=== PATIENT | male | born 1980 | race Caucasian/White ===

== ENCOUNTER 2016-11-12 02:51 | Inpatient (IN) | payer SELFPAY ==
[~2016-11-12] VITALS: Ht 175.3 cm; Wt 66.5 kg
--- NOTE | 2016-11-12 04:55 | DIAGNOSTIC IMAGING REPORT ---
PROCEDURE: XR HAND 3 OR 4 VIEWS - RIGHT INDICATION: CELLULITIS TECHNIQUE: Four views. COMPARISON: None. FINDINGS: There is moderate soft tissue swelling over the dorsum of the right hand. There is a true millimeter metal foreign body in the subcutaneous tissues of the distal right thumb. Osseous structures and joint spaces are normal. IMPRESSION: 1. Moderate soft tissue swelling. 2. There is a 2 mm metal foreign body in the soft tissues of the distal right thumb (acute versus old). 3. Otherwise negative right hand. 4. Findings discussed with Dr. Thomas Pascal.
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
--- NOTE | 2016-11-12 08:04 | ED ORDER SUMMARY ---
..... Patient: ALEJANDRINA HENDRIX OrderSheet [facility] VisitID: [id number] [place] [address] 36y, M Registration Date/Time: 11/12/2016 ORDER SHEET Weight: 70.3 kg (stated) Allergies: No Known Drug Allergy GENERAL ORDERS: Hand 3 or 4V Right Urgent (03:49 11/12/2016 Bernadette Rueda) (Ack 3:52 AMcQuoid ER Tech1) (4:03 Amrita) CBC w Diff Urgent (03:49 11/12/2016 Bernadette Rueda) (Ack 3:52 AMcQuoid ER Tech1) (4:09 JDeElena R.N.) CMP Urgent (03:49 11/12/2016 Bernadette Rueda) (Ack 3:52 AMcQuoid ER Tech1) (4:09 JDeElena R.N.) Blood Culture (No) (N/A) Urgent (05:06 11/12/2016 Bernadette Rueda) (Ack 5:16 AMcQuoid ER Tech1) (6:07 JDeElena R.N.) PCT (Procalcitonin) Urgent (05:06 11/12/2016 Bernadette Rueda) (Ack 5:16 AMcQuoid ER Tech1) (6:07 JDeElena R.N.) Lactate, Serum Urgent (05:06 11/12/2016 Bernadette Rueda) (Ack 5:16 AMcQuoid ER Tech1) (6:07 JDeElena R.N.) MEDICATION ORDERS: Qctsozs-Trqxto-Mpivo Pertussis IM 0.5 mL (NOW, per protocol) (03:50 11/12/2016 Bernadette Rueda) (Ack 4:03 JDeElena R.N.) (4:15 JDeElena R.N.) Nicotine Topical 21 mg (NOW) (06:32 11/12/2016 JDeElena R.N. verbal order read back to Bernadette Rueda) (Ack 6:32 JDeElena R.N.) (6:35 JDeElena R.N.) IV FLUIDS: IV Saline Lock (03:49 11/12/2016 Bernadette Rueda) (Ack 4:03 JDeElena R.N.) (4:09 JDeElena R.N.) Morphine IV 4 mg (HIGH ALERT MEDICATION, NOW) (03:50 11/12/2016 Bernadette Rueda) (Ack 4:03 JDeElena R.N.) (4:11 JDeElena R.N.) IV NS : initial bolus 1000 mL (1000 mL/hr), then none - for X1 (NOW) (05:06 11/12/2016 Bernadette Rueda) (Ack 5:07 JDeElena R.N.) (6:07 JDeElena R.N.) Vancomycin IV 1 gm/200mL (NOW) (05:06 11/12/2016 Bernadette Rueda) (Ack 5:07 JDeElena R.N.) (6:26 JDeElena R.N.) Ceftriaxone IV 1 gm/50mL (NOW) (05:07 11/12/2016 Bernadette Rueda) (Ack 5:07 JDeElena R.N.) (6:07 JDeElena R.N.) IV NS : initial bolus 1000 mL (1000 mL/hr), then none - for X1 (NOW) (07:52 11/12/2016 Bernadette Rueda) (Ack 7:57 MWinterer R.N.) (8:01 MWinterer R.N.) ORDER SHEET NOTES: [Electronically signed by Thomas Pascal Dr. (08:04 11/12/2016)] [Electronically signed by Shelia Vargas R.N. (09:35 11/12/2016)] [Electronically locked/signed by Shelia Vargas R.N. (09:35 11/12/2016)]
--- NOTE | 2016-11-12 08:04 | ED NURSING NOTES ---
Clinical Report - Nurses Merged With [facility] [address] [place] [address] 11/12/2016 2:51 Patient: ALEJANDRINA HENDRIX TRIAGE Triage time 03:12. Acuity: LEVEL 4. Chief Complaint: TENDER AREA and . Onset about 2 days ago, worst pain on middle R finger. States pus is coming out of the wound. Alert. No acute distress. SEPSIS SCREEN: Sepsis Screen: negative. Infection suspected/documented. --03:17 Sergio Maldonado R.N. 03:12 11/12/16. BP: 106/77 (regular adult cuff) taken on the left arm, via an automated monitor, while lying. HR: 93 (normal rate). RR: 16 (regular, unlabored and normal). O2 saturation: 100% on room air. Temp: 98 F (oral). Pain level now: 05/30. --03:17 Sergio Maldonado R.N. Weight: 70.3 kg stated. Height/Length: 69 inches Per Patient. BMI: 22.9. --03:13 Sergio Maldonado R.N. Medications None. --03:13 Sergio Maldonado R.N. Medication/allergy information source: the patient. --03:17 Sergio Maldonado R.N. Allergies No Known Drug Allergy. --03:13 Sergio Maldonado R.N. History Arrived by private vehicle. Historian: patient. Primary physician (None). Onset. (about 2 days ago). It is described as painful. He has had chills. Denies muscle aches. No sweating episodes. Treatment HOSPITAL SCIENTIST: (Epsom salt-not really any relief). SOCIAL HX: Current every day heavy tobacco smoker (cigarette)- less than 1 pack per day. No alcohol use or drug use. He has not traveled outside the [place] The patient was not exposed to MRSA. ABUSE ASSESSMENT: Abuse assessment: The patient was asked "Do you feel safe in your home?" and "Has anyone hurt you or threatened to hurt you?". No report of abuse. SELF HARM ASSESSMENT: A self harm assessment was performed. The patient answered "no" to the question "Do you have thoughts of harming or killing yourself?" and "Have you recently had thoughts about harming or killing others?". FALL RISK ASSESSMENT: Fall risk assessment completed. No fall risk identified. NUTRITIONAL RISK ASSESSMENT: The nutritional risk assessment revealed no deficiencies. FUNCTIONAL ASSESSMENT: Functional assessment: no impairments noted. LEARNING NEEDS ASSESSMENT: The learning needs assessment revealed no barriers. SKIN INTEGRITY ASSESSMENT: Skin integrity risk assessment completed. No skin integrity risk identified. --03:17 Sergio Maldonado R.N. PROBLEMS: Head Injury. Cervical Strain. Hypertension. Tetanus Status. --03:13 Sergio Maldonado R.N. ADDITIONAL SURGERIES: Tonsillectomy. --03:13 Sergio Maldonado R.N. Assessment GENERAL / NEURO / PSYCH: Alert. Oriented X 4. Appears in no acute distress. Marianna Coma Scale: 15- eyes open spontaneously (4); best verbal response- oriented x 4 (5); best motor response- obeys commands (6). Patient appears calm and cooperative. ( Knuckles on R hand red, swollen). RESPIRATORY: Respirations not labored. SKIN: Skin is warm and dry. --03:17 Sergio Maldonado R.N. Interventions ID band on patient. To treatment room. --03:17 Sergio Maldonado R.N. PHYSICAL ASSESSMENT Ambulatory to room. GENERAL / NEURO / PSYCH: Alert. Appears in pain. Oriented X 4. RESPIRATORY: No respiratory distress. Respirations not labored. CVS: Pulses: right radial 2+ and left radial 2+. Capillary refill less than 2 seconds. EXTREMITIES: ( Knuckles on R hand swollen and red. Abrasions noted. Alejandrina reports abrasion near ring finger is draining pus.). SKIN: Skin is warm and dry. --03:18 Sergio Maldonado R.N. NURSING PROGRESS NOTES The initial plan of care for this patient has been created This plan of care was discussed with the patient. Reassurance given to the patient. Two patient identifiers checked. Call light placed in reach. Side rails up x 1. Bed placed in lowest position. Brakes of bed on. Patient ready for evaluation- ED physician notified. --03:17 Sergio Maldonado R.N. 04:09 11/12/2016 Site #1 started via IV in the left hand with an 20g angiocath, with aseptic technique and good blood return; one attempt. Blood drawn: rainbow set. Labeled in the presence of the patient and sent to the lab. Saline lock flushed with 10 mL saline. --04:09 Sergio Maldonado R.N. 04:11 11/12/2016 Morphine IVP 4 mg given over 2 minute(s) via site #1. Allergies verified, confirmed 5 rights and sedative warning given to the patient. IV patency established. IV site checked: no pain, redness, or swelling. IV flushed thoroughly pre- and post-medication administration. IVP given by RN. --04:11 Sergio Maldonado R.N. 04:15 11/12/2016 HAVNLJO-PCUJHN-LAMIC PERTUSSIS IM 0.5 mL given. (Lot#: [id number], expiration date: 05/28/2018, Technical Associate: sanofi pasteur). Given in the right deltoid. Allergies verified and confirmed 5 rights. Vaccine information statement provided to the patient. --04:15 Sergio Maldonado R.N. 06:07 11/12/2016 Started bag #1 1000 mL IV Fluids IV NS (Saline); at 1000 mL/hr over 1 hour(s) via site #1. Allergies verified and confirmed 5 rights. IV patency established. IV site checked: no pain, redness, or swelling. IV flushed thoroughly pre- and post-medication administration. Completed per protocol. --06:07 Sergio Maldonado R.N. 06:07 11/12/2016 Started 1 gm of Ceftriaxone IVPB in bag #1 50 mL; at 100 mL/hr over 30 minute(s) via site #1; Allergies verified and confirmed 5 rights. IV patency established. IV site checked: no pain, redness, or swelling. IV flushed thoroughly pre- and post-medication administration. Completed per protocol. --06:07 Sergio Maldonado R.N. 05:45. Patient ID band checked for patient name and birthdate: patient confirmed. Blood samples drawn from the left antecubital space by lab ; labeled in presence of the patient and sent to lab: red and juarez top; blood culture (1st set). --06:08 Sergio Maldonado R.N. 06:08 11/12/16. BP: 116/66 (regular adult cuff) taken on the left arm, via an automated monitor, while lying. HR: 84 (normal rate). RR: 16 (regular, unlabored and normal). O2 saturation: 99% on room air. --06:09 Sergio Maldonado R.N. The patient is resting quietly. RESPIRATORY: No respiratory distress. --06:09 Sergio Maldonado R.N. 06:26 11/12/2016 Started 1 gm of Vancomycin IVPB in bag #1 200 mL; at 200 mL/hr over 1 hour(s) via site #1; Allergies verified and confirmed 5 rights. IV patency established. IV site checked: no pain, redness, or swelling. IV flushed thoroughly pre- and post-medication administration. Completed per protocol. --06:26 Sergio Maldonado R.N. 06:27 11/12/2016 IV Fluids IV NS Response: no adverse reaction. --06:27 Aviva French R.N. 06:27 11/12/2016 [id number] PERTUSSIS IM Response: no adverse reaction. --06:27 Aviva French R.N. 06:28 11/12/2016 Morphine IVP Response: no adverse reaction. --06:28 Aviva French R.N. 06:28 11/12/16. Reassessment after medication administered. He has had no adverse reaction. --06:28 Aviva French R.N. 06:35 11/12/2016 NICOTINE Topical Patch/Pad 21 mg. Applied to the right upper arm. Allergies verified and confirmed 5 rights. --06:35 Sergio Maldonado R.N. 07:12 11/12/16. BP: 113/72. HR: 79. O2 saturation: 98% on room air. --07:12 Shelia Vargas R.N. 07:10 11/12/2016 IV Fluids IV NS Discontinued: bag #1 infused. Total amount infused: 1000 mL. IV patency established. IV site checked: no pain, redness, or swelling. IV flushed thoroughly. --08:27 Shelia Vargas R.N. 07:12 11/12/16. The patient reports no complaints and he is calm and resting quietly. --07:13 Shelia Vargas R.N. Care transferred and report given (DELANEY Bass). --07:14 Sergio Maldonado R.N. 07:32 11/12/2016 Vancomycin IVPB Discontinued: bag #1 infused. Total amount infused: 200 mL. IV patency established. IV site checked: no pain, redness, or swelling. IV flushed thoroughly. --07:32 Shelia Vargas R.N. 08:01 11/12/2016 Started bag #2 1000 mL IV Fluids IV NS (Saline); at 1000 mL/hr over 1 hour(s) via site #1. Allergies verified and confirmed 5 rights. IV patency established. IV site checked: no pain, redness, or swelling. IV flushed thoroughly pre- and post-medication administration. --08:01 Shelia Vargas R.N. 08:59 11/12/16. ( H&P form given to pt to fill out.). --08:59 Abigail Sr 09:02 11/12/2016 Site #[address] upon admission; patent, no pain and no signs of infection or infiltration; flushes easily. --09:17 Shelia Vargas R.N. 09:02 11/12/2016 IV Fluids IV NS Discontinued: bag #2 infused. Total amount infused: 1000 mL. IV patency established. IV site checked: no pain, redness, or swelling. IV flushed thoroughly. --09:17 Shelia Vargas R.N. DISPOSITION / DISCHARGE Patient paged once with no response. --03:02 Sergio Maldonado R.N. Patient paged; (DELANEY Chicas went to waiting room to get Alejandrina. Per front end developer, Alejandrina is outside smoking.). --03:03 DeElena, Sergio, R.N. Patient's personal items include: shirt, pants, undergarments, coat, socks, shoes and hat; items were placed in belongings bag, given to the patient and transported with the patient. Collection of belongings was witnessed by 1 nurse. He did not have glasses, contacts or dentures. He did not have a hearing aid, wallet or cell phone or jewelry. --08:18 Moon Hough R.N. 08:18 11/12/16. BP: 116/74. HR: 87. RR: 15. O2 saturation: 99%. Temp: 98.1 F. Pain level now 02/27. --08:19 Moon Hough R.N. Condition at departure: stable. --08:20 Moon Hough R.N. ( pt resting quietly, equal rise/fall of chest, reports pain of 7, pts belongings bagged and pt readied for admit to hospital.). --08:20 Moon Hough R.N. 09:10 late entry -. Admitted to Acute Care. Transported via stretcher by [employer] (T/A). Report was given to a nurse via a phone call. Report included patient's care, treatment, medications, reviewed medication reconcilliation, and condition (including any recent changes or anticipated changes). All questions were answered. Report was acknowledged and care was transferred. (DELANEY Valle). Bed obtained and ready (211). --09:34 Shelia Vargas R.N. Locked/Released at 11/12/2016 9:35 by Shelia Vargas R.N.
--- NOTE | 2016-11-12 08:04 | ED ORDER SUMMARY ---
..... Patient: ALEJANDRINA HENDRIX OrderSheet [facility] VisitID: [id number] [place] [address] 36y, M Registration Date/Time: 11/12/2016 ORDER SHEET Weight: 70.3 kg (stated) Allergies: No Known Drug Allergy GENERAL ORDERS: Hand 3 or 4V Right Urgent (03:49 11/12/2016 Bernadette Rueda) (Ack 3:52 AMcQuoid ER Tech1) (4:03 Amrita) CBC w Diff Urgent (03:49 11/12/2016 Bernadette Rueda) (Ack 3:52 AMcQuoid ER Tech1) (4:09 JDeElena R.N.) CMP Urgent (03:49 11/12/2016 Bernadette Rueda) (Ack 3:52 AMcQuoid ER Tech1) (4:09 JDeElena R.N.) Blood Culture (No) (N/A) Urgent (05:06 11/12/2016 Bernadette Rueda) (Ack 5:16 AMcQuoid ER Tech1) (6:07 JDeElena R.N.) PCT (Procalcitonin) Urgent (05:06 11/12/2016 Bernadette Rueda) (Ack 5:16 AMcQuoid ER Tech1) (6:07 JDeElena R.N.) Lactate, Serum Urgent (05:06 11/12/2016 Bernadette Rueda) (Ack 5:16 AMcQuoid ER Tech1) (6:07 JDeElena R.N.) MEDICATION ORDERS: Hzztuyf-Raczao-Ngavz Pertussis IM 0.5 mL (NOW, per protocol) (03:50 11/12/2016 Bernadette Rueda) (Ack 4:03 JDeElena R.N.) (4:15 JDeElena R.N.) Nicotine Topical 21 mg (NOW) (06:32 11/12/2016 JDeElena R.N. verbal order read back to Bernadette Rueda) (Ack 6:32 JDeElena R.N.) (6:35 JDeElena R.N.) IV FLUIDS: IV Saline Lock (03:49 11/12/2016 Bernadette Rueda) (Ack 4:03 JDeElena R.N.) (4:09 JDeElena R.N.) Morphine IV 4 mg (HIGH ALERT MEDICATION, NOW) (03:50 11/12/2016 Bernadette Rueda) (Ack 4:03 JDeElena R.N.) (4:11 JDeElena R.N.) IV NS : initial bolus 1000 mL (1000 mL/hr), then none - for X1 (NOW) (05:06 11/12/2016 Bernadette Rueda) (Ack 5:07 JDeElena R.N.) (6:07 JDeElena R.N.) Vancomycin IV 1 gm/200mL (NOW) (05:06 11/12/2016 Bernadette Rueda) (Ack 5:07 JDeElena R.N.) (6:26 JDeElena R.N.) Ceftriaxone IV 1 gm/50mL (NOW) (05:07 11/12/2016 Bernadette Rueda) (Ack 5:07 JDeElena R.N.) (6:07 JDeElena R.N.) IV NS : initial bolus 1000 mL (1000 mL/hr), then none - for X1 (NOW) (07:52 11/12/2016 Bernadette Rueda) (Ack 7:57 MWinterer R.N.) (8:01 MWinterer R.N.) ORDER SHEET NOTES: [Electronically signed by Thomas Pascal Dr. (08:04 11/12/2016)] [Electronically signed by Shelia Vargas R.N. (09:35 11/12/2016)] [Electronically locked/signed by Shelia Vargas R.N. (09:35 11/12/2016)]
--- NOTE | 2016-11-12 08:04 | ED NURSING NOTES ---
Clinical Report - Nurses Formerly [facility] [address] [place] [address] 11/12/2016 2:51 Patient: ALEJANDRINA HENDRIX TRIAGE Triage time 03:12. Acuity: LEVEL 4. Chief Complaint: TENDER AREA and . Onset about 2 days ago, worst pain on middle R finger. States pus is coming out of the wound. Alert. No acute distress. SEPSIS SCREEN: Sepsis Screen: negative. Infection suspected/documented. --03:17 Sergio Maldonado R.N. 03:12 11/12/16. BP: 106/77 (regular adult cuff) taken on the left arm, via an automated monitor, while lying. HR: 93 (normal rate). RR: 16 (regular, unlabored and normal). O2 saturation: 100% on room air. Temp: 98 F (oral). Pain level now: 05/30. --03:17 Sergio Maldonado R.N. Weight: 70.3 kg stated. Height/Length: 69 inches Per Patient. BMI: 22.9. --03:13 Sergio Maldonado R.N. Medications None. --03:13 Sergio Maldonado R.N. Medication/allergy information source: the patient. --03:17 Sergio Maldonado R.N. Allergies No Known Drug Allergy. --03:13 Sergio Maldonado R.N. History Arrived by private vehicle. Historian: patient. Primary physician (None). Onset. (about 2 days ago). It is described as painful. He has had chills. Denies muscle aches. No sweating episodes. 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 SOCIAL HX: Current every day heavy tobacco smoker (cigarette)- less than 1 pack per day. No alcohol use or drug use. He has not traveled outside the [place] The patient was not exposed to MRSA. ABUSE ASSESSMENT: Abuse assessment: The patient was asked "Do you feel safe in your home?" and "Has anyone hurt you or threatened to hurt you?". No report of abuse. SELF HARM ASSESSMENT: A self harm assessment was performed. The patient answered "no" to the question "Do you have thoughts of harming or killing yourself?" and "Have you recently had thoughts about harming or killing others?". FALL RISK ASSESSMENT: Fall risk assessment completed. No fall risk identified. NUTRITIONAL RISK ASSESSMENT: The nutritional risk assessment revealed no deficiencies. FUNCTIONAL ASSESSMENT: Functional assessment: no impairments noted. LEARNING NEEDS ASSESSMENT: The learning needs assessment revealed no barriers. SKIN INTEGRITY ASSESSMENT: Skin integrity risk assessment completed. No skin integrity risk identified. --03:17 Sergio Maldonado R.N. PROBLEMS: Head Injury. Cervical Strain. Hypertension. Tetanus Status. --03:13 Sergio Maldonado R.N. ADDITIONAL SURGERIES: Tonsillectomy. --03:13 Sergio Maldonado R.N. Assessment GENERAL / NEURO / PSYCH: Alert. Oriented X 4. Appears in no acute distress. Meadow Coma Scale: 15- eyes open spontaneously (4); best verbal response- oriented x 4 (5); best motor response- obeys commands (6). Patient appears calm and cooperative. ( Knuckles on R hand red, swollen). RESPIRATORY: Respirations not labored. SKIN: Skin is warm and dry. --03:17 Sergio Maldonado R.N. Interventions ID band on patient. To treatment room. --03:17 Sergio Maldonado R.N. PHYSICAL ASSESSMENT Ambulatory to room. GENERAL / NEURO / PSYCH: Alert. Appears in pain. Oriented X 4. RESPIRATORY: No respiratory distress. Respirations not labored. CVS: Pulses: right radial 2+ and left radial 2+. Capillary refill less than 2 seconds. EXTREMITIES: ( Knuckles on R hand swollen and red. Abrasions noted. Alejandrina reports abrasion near ring finger is draining pus.). SKIN: Skin is warm and dry. --03:18 Sergio Maldonado R.N. NURSING PROGRESS NOTES The initial plan of care for this patient has been created This plan of care was discussed with the patient. Reassurance given to the patient. Two patient identifiers checked. Call light placed in reach. Side rails up x 1. Bed placed in lowest position. Brakes of bed on. Patient ready for evaluation- ED physician notified. --03:17 Sergio Maldonado R.N. 04:09 11/12/2016 Site #1 started via IV in the left hand with an 20g angiocath, with aseptic technique and good blood return; one attempt. Blood drawn: rainbow set. Labeled in the presence of the patient and sent to the lab. Saline lock flushed with 10 mL saline. --04:09 Sergio Maldonado R.N. 04:11 11/12/2016 Morphine IVP 4 mg given over 2 minute(s) via site #1. Allergies verified, confirmed 5 rights and sedative warning given to the patient. IV patency established. IV site checked: no pain, redness, or swelling. IV flushed thoroughly pre- and post-medication administration. IVP given by RN. --04:11 Sergio Maldonado R.N. 04:15 11/12/2016 UGJUUOR-HWGEGQ-CMQME PERTUSSIS IM 0.5 mL given. (Lot#: [id number], expiration date: 05/28/2018, Automation Qtp Tester: sanofi pasteur). Given in the right deltoid. Allergies verified and confirmed 5 rights. Vaccine information statement provided to the patient. --04:15 Sergio Maldonado R.N. 06:07 11/12/2016 Started bag #1 1000 mL IV Fluids IV NS (Saline); at 1000 mL/hr over 1 hour(s) via site #1. Allergies verified and confirmed 5 rights. IV patency established. IV site checked: no pain, redness, or swelling. IV flushed thoroughly pre- and post-medication administration. Completed per protocol. --06:07 Sergio Maldonado R.N. 06:07 11/12/2016 Started 1 gm of Ceftriaxone IVPB in bag #1 50 mL; at 100 mL/hr over 30 minute(s) via site #1; Allergies verified and confirmed 5 rights. IV patency established. IV site checked: no pain, redness, or swelling. IV flushed thoroughly pre- and post-medication administration. Completed per protocol. --06:07 Sergio Maldonado R.N. 05:45. Patient ID band checked for patient name and birthdate: patient confirmed. Blood samples drawn from the left antecubital space by lab ; labeled in presence of the patient and sent to lab: red and juarez top; blood culture (1st set). --06:08 Sergio Maldonado R.N. 06:08 11/12/16. BP: 116/66 (regular adult cuff) taken on the left arm, via an automated monitor, while lying. HR: 84 (normal rate). RR: 16 (regular, unlabored and normal). O2 saturation: 99% on room air. --06:09 Sergio Maldonado R.N. The patient is resting quietly. RESPIRATORY: No respiratory distress. --06:09 Sergio Maldonado R.N. 06:26 11/12/2016 Started 1 gm of Vancomycin IVPB in bag #1 200 mL; at 200 mL/hr over 1 hour(s) via site #1; Allergies verified and confirmed 5 rights. IV patency established. IV site checked: no pain, redness, or swelling. IV flushed thoroughly pre- and post-medication administration. Completed per protocol. --06:26 Sergio Maldonado R.N. 06:27 11/12/2016 IV Fluids IV NS Response: no adverse reaction. --06:27 Aviva French R.N. 06:27 11/12/2016 JVPNORC-EMSOZY-YNJWI PERTUSSIS IM Response: no adverse reaction. --06:27 Aviva French R.N. 06:28 11/12/2016 Morphine IVP Response: no adverse reaction. --06:28 Aviva French R.N. 06:28 11/12/16. Reassessment after medication administered. He has had no adverse reaction. --06:28 Aviva French R.N. 06:35 11/12/2016 NICOTINE Topical Patch/Pad 21 mg. Applied to the right upper arm. Allergies verified and confirmed 5 rights. --06:35 Sergio Maldonado R.N. 07:12 11/12/16. BP: 113/72. HR: 79. O2 saturation: 98% on room air. --07:12 Shelia Vargas R.N. 07:10 11/12/2016 IV Fluids IV NS Discontinued: bag #1 infused. Total amount infused: 1000 mL. IV patency established. IV site checked: no pain, redness, or swelling. IV flushed thoroughly. --08:27 Shelia Vargas R.N. 07:12 11/12/16. The patient reports no complaints and he is calm and resting quietly. --07:13 Shelia Vargas R.N. Care transferred and report given (DELANEY Bass). --07:14 Sergio Maldonado R.N. 07:32 11/12/2016 Vancomycin IVPB Discontinued: bag #1 infused. Total amount infused: 200 mL. IV patency established. IV site checked: no pain, redness, or swelling. IV flushed thoroughly. --07:32 Shelia Vargas R.N. 08:01 11/12/2016 Started bag #2 1000 mL IV Fluids IV NS (Saline); at 1000 mL/hr over 1 hour(s) via site #1. Allergies verified and confirmed 5 rights. IV patency established. IV site checked: no pain, redness, or swelling. IV flushed thoroughly pre- and post-medication administration. --08:01 Shelia Vargas R.N. 08:59 11/12/16. ( H&P form given to pt to fill out.). --08:59 Abigail Sr 09:02 11/12/2016 Site #[address] upon admission; patent, no pain and no signs of infection or infiltration; flushes easily. --09:17 Shelia Vargas R.N. 09:02 11/12/2016 IV Fluids IV NS Discontinued: bag #2 infused. Total amount infused: 1000 mL. IV patency established. IV site checked: no pain, redness, or swelling. IV flushed thoroughly. --09:17 Shelia Vargas R.N. DISPOSITION / DISCHARGE Patient paged once with no response. --03:02 Sergio Maldonado R.N. Patient paged; (DELANEY Chicas went to waiting room to get Alejandrina. Per front end mechanic, Alejandrina is outside smoking.). --03:03 DeElena, Sergio, R.N. Patient's personal items include: shirt, pants, undergarments, coat, socks, shoes and hat; items were placed in belongings bag, given to the patient and transported with the patient. Collection of belongings was witnessed by 1 nurse. He did not have glasses, contacts or dentures. He did not have a hearing aid, wallet or cell phone or jewelry. --08:18 Moon Hough R.N. 08:18 11/12/16. BP: 116/74. HR: 87. RR: 15. O2 saturation: 99%. Temp: 98.1 F. Pain level now 02/27. --08:19 Mono Hough R.N. Condition at departure: stable. --08:20 Moon Hough R.N. ( pt resting quietly, equal rise/fall of chest, reports pain of 7, pts belongings bagged and pt readied for admit to hospital.). --08:20 Moon Hough R.N. 09:10 late entry -. Admitted to Acute Care. Transported via stretcher by [facility]. Report was given to a nurse via a phone call. Report included patient's care, treatment, medications, reviewed medication reconcilliation, and condition (including any recent changes or anticipated changes). All questions were answered. Report was acknowledged and care was transferred. (DELANEY Valle). Bed obtained and ready (211). --09:34 Shelia Vargas R.N. Locked/Released at 11/12/2016 9:35 by Shelia Vargas R.N.
--- NOTE | 2016-11-12 08:33 | Progress Note ---
Subjective General Admission History and Physical Examination Patient Name: Jose Carlos Patricia Admission Date: November 12, 2016 Primary Care Provider: None Attending Physician: Billy Eli M.D. Admitting Physician: Billy Eli M.D. Code Status: Full Code Room: 211 SUBJECTIVE Historian: Patient Reliability: Good Chief Complaint: , Painful, swollen right hand History of Present Illness: The patient is a 36-year-old white male with a significant past medical history of hypertension, nicotine dependence-smoking who presented to [facility] emergency department on the day of admission with complaints of swelling, redness, and pain of the right hand. [facility] ER evaluation was consistent with cellulitis of the right hand. Secondary to the above the patient was admitted by Billy Eli M.D. with consultation by Dr. Suárez (orthopedics) for further evaluation and treatment. PAST MEDICAL HISTORY Illnesses: 1. Nicotine dependence-smoking 2. Hypertension 3. Nephrolithiasis 4. Peptic ulcer disease 5. Carpal tunnel syndrome Allergies: 1. No Known Drug Allergies Medications: 1. Aleve 220 mg by mouth twice a day when necessary pain Surgery: 1. Tonsillectomy 2. Bilateral myringotomy tubes Injuries: 1. No significant Hospitalizations: 1. For above surgery FAMILY HISTORY Parents: 1. Father, Popeye, living, 60, diverticulitis, coronary artery disease, 2. Mother, Natacha, , 51, call abuse Siblings: 1. Male, Abbe, living, 35, healthy Children: 1. None Other significant family history: None SOCIAL HISTORY 1. Marital Status: 2. Confucianism: None 3. 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 Occupational health exposures: None HABITS 1. Tobacco: Cigarettes 21 pack years, continues to smoke one half pack per day 2. Drugs: None 3. Alcohol: None 4. Caffeine: One cup coffee, 1 energy drink per day HEALTH SUPERVISION Item/Test 1. No recent IMMUNIZATIONS: 1. Pneumococcal: No previous 2. Influenza: No previous 3. Tetanus: 2017 ADVANCED DIRECTIVES: 1. Living well: No 2. POLST: No 3. Code Status: FULL CODE 4. 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 Donor card: No REVIEW OF SYSTEMS Remarkable for those things stated in the history of present illness and past medical history. Seventeen point review of system completed with the following notable findings: General: Fever, chills Skin: Dryness Genitourinary: Nephrolithiasis Gastrointestinal: Peptic ulcer disease Musculoskeletal: History of carpal tunnel syndrome Physical Exam Vital Signs / I&Os Blood pressure: 113/72 Pulse: 79 Respirations: 16 Temperature: 98F orally Pulse oximetry: 100% room air General Appearance Alert, Oriented X3, Cooperative, No acute distress HEENT Atraumatic, PERRLA, EOMI, Moist mucous membranes Lungs Clear to auscultation, Normal air movement Neck Supple, No JVD Cardiovascular Regular rate and rhythm, Normal S1 and S2, No murmurs, gallops, rubs Abdomen Normal bowel sounds, Soft, No tenderness Extremities No cyanosis, No clubbing, Edema of the dorsum right hand/third finger with associated erythema and tenderness palpation Neurological Cranial nerves intact, No lateralizing signs Psych/Mental Status Mental status normal, Mood normal LAB Results Laboratory Tests 11/12 11/12 11/12 0540 0410 0410 Chemistry Plasma Sodium (136 - 145 mmol/L) 140 Plasma Potassium (3.5 - 5.1 mmol/L) 3.7 Plasma Chloride (98 - 107 mmol/L) 104 CO2 (Enzymatic) (21 - 32 mmol/L) 28 BUN (7 - 18 mg/dL) 14 Creatinine (0.6 - 1.3 mg/dL) 0.8 Est GFR ( Amer) (mL/min) >60 Est GFR (Non-Af Amer) (mL/min) >60 Glucose (70 - 110 mg/dL) 108 Lactic Acid (0.4 - 2.0 mmol/L) 1.3 Plasma Calcium (8.5 - 10.1 mg/dL) 8.8 Total Bilirubin (0.0 - 1.0 mg/dL) 0.4 AST (15 - 37 U/L) 14 ALT (12 - 78 U/L) 26 Alkaline Phosphatase (46 - 116 U/L) 80 Total Protein (6.4 - 8.2 g/dL) 6.9 Albumin (3.3 - 5.0 g/dL) 3.2 Procalcitonin (0 - 0.5 ng/mL) <0.5 Hematology WBC (4.5 - 11.5 K/uL) 15.5 RBC (4.50 - 5.90 M/uL) 4.44 Hgb (13.5 - 17.5 gm/dL) 13.9 Hct (41.0 - 53.0 %) 41.5 MCV (80 - 100 fL) 93 MCH (26 - 34 pg) 31 RDW (11.6 - 14.8 %) 13.1 Neut % (Auto) (50 - 75 %) 71.5 Lymph % (Auto) (25 - 40 %) 16.0 [place] % (Auto) (3 - 14 %) 10.9 Eos % (Auto) (0 - 4 %) 1.3 Baso % (Auto) (0 - 2 %) 0.3 Plt Count, EDTA (150 - 400 K/uL) 299 PUBS MCHC (31 - 37 g/dL) 33 Microbiology Date/Time Procedure - Status Source Growth 11/13 539 Blood Culture - RECD BLOOD 11/13 539 Blood Culture - RECD BLOOD Imaging X-Ray Right Hand IMPRESSION: 1. Moderate soft tissue swelling. 2. There is a 2 mm metal foreign body in the soft tissues of the distal right thumb (acute versus old). 3. Otherwise negative right hand. 4. Findings discussed with Dr. Thomas Pascal. Dictated by: LUCRETIA DYSON MD D: DONIS;11/12/16 0455 Assessment and Plan Problem List 1. Cellulitis of right hand Plan -Patient presents with cellulitis right hand/third finger -Vancomycin per pharmacy protocol -No clear abscess at this time -Orthopedic consultation 2. Nicotine dependence Status Chronic Onset Date Unknown Plan -Patient with history of nicotine dependence-smoking -NicoDerm patch as needed -Smoking cessation education -Encourage smoking abstinence post discharge Current status: Fair, unstable Anticipated discharge date: Anticipated discharge in 2-3 days Anticipated discharge placement: Home Patient care time: Time spent in chart review, patient interview, physical exam, CPOE, and care documentation: 70 minutes Visit to patient today: 2 Complexity of care: Moderate E&M Codes Admission: Inpt-Moderate/16553
[2016-11-12 09:26] VITALS: BP 107/74
--- NOTE | 2016-11-12 09:36 | ED MED RECONCILIATION SUMMARY ---
Patient: ALEJANDRINA HENDRIX Medication Reconciliation Report [facility] VisitID: [id number] [place] [address] 36y, M Registration Date/Time: 11/12/2016 Weight: 70.3 kg Height/Length: 69 in. BMI: 22.9 ALLERGIES: No Known Drug Allergy The patient's Home Medications are listed below: NONE. The source(s) of the original Home Medication information: patient The following Medications were given to the patient in the Emergency Department: Morphine [IVP] IVP 4 mg, administered: 11/12/2016 4:11:00 AM HCUYKSL-LEPBIX-ECPJV PERTUSSIS [IM] IM 0.5 mL, administered: 11/12/2016 4:15:00 AM IV NS IV Fluids bolus 0, then 1000 mL/hr, administered: 11/12/2016 6:07:00 AM Ceftriaxone [IVPB] IVPB bolus 0, then 1 gm 100 mL/hr, administered: 11/12/2016 6:07:00 AM Vancomycin [IVPB] IVPB bolus 0, then 1 gm 200 mL/hr, administered: 11/12/2016 6:26:00 AM NICOTINE [TOPICAL] Topical 21 mg, administered: 11/12/2016 6:35:00 AM IV NS IV Fluids bolus 0, then 1000 mL/hr, administered: 11/12/2016 8:01:00 AM The following Medications were prescribed to the patient: None.
--- NOTE | 2016-11-12 09:36 | ED MED RECONCILIATION SUMMARY ---
Patient: ALEJANDRINA HENDRIX Medication Reconciliation Report [facility] VisitID: [id number] [place] [address] 36y, M Registration Date/Time: 11/12/2016 Weight: 70.3 kg Height/Length: 69 in. BMI: 22.9 ALLERGIES: No Known Drug Allergy The patient's Home Medications are listed below: NONE. The source(s) of the original Home Medication information: patient The following Medications were given to the patient in the Emergency Department: Morphine [IVP] IVP 4 mg, administered: 11/12/2016 4:11:00 AM GRVOATW-ZAKQDH-XMCUB PERTUSSIS [IM] IM 0.5 mL, administered: 11/12/2016 4:15:00 AM IV NS IV Fluids bolus 0, then 1000 mL/hr, administered: 11/12/2016 6:07:00 AM Ceftriaxone [IVPB] IVPB bolus 0, then 1 gm 100 mL/hr, administered: 11/12/2016 6:07:00 AM Vancomycin [IVPB] IVPB bolus 0, then 1 gm 200 mL/hr, administered: 11/12/2016 6:26:00 AM NICOTINE [TOPICAL] Topical 21 mg, administered: 11/12/2016 6:35:00 AM IV NS IV Fluids bolus 0, then 1000 mL/hr, administered: 11/12/2016 8:01:00 AM The following Medications were prescribed to the patient: None.
--- NOTE | 2016-11-12 09:36 | ED DISCHARGE INSTRUCTIONS ---
Patient: ALEJANDRINA HENDRIX General Instructions [facility] VisitID: [id number] [address] [place] [address] 36y, M Registration Date/Time: 11/12/2016 sepsis acute Cellulitis right hand, acute lymphangitis, acute right hand and forearm. (Electronically signed by Thomas Pascal Dr. 11/12/2016 8:04)
--- NOTE | 2016-11-12 09:36 | ED MAR SUMMARY ---
..... Medication Administration Record [facility] [address] [place] [address] Patient: ALEJANDRINA HENDRIX Visit ID: [id number] 36y, M Weight: 70.3 kg Height/Length: 69 in BMI: 22.9 ALLERGIES: No Known Drug Allergy Given 04:11 11/12/2016 Sergio Maldonado R.N. Medication Administered: MORPHINE [IVP], Dose: 4 mg IVP over 2 minute(s), Site: #1 left hand. Medication Ordered: Morphine IV 4 mg (HIGH ALERT MEDICATION, NOW). Given 04:15 11/12/2016 Sergio Maldonado R.N. Medication Administered: NDBNOUL-RKCNAD-XUFFR PERTUSSIS [IM], Dose: 0.5 mL IM. Medication Ordered: Cstjxep-Yyolrx-Jazge Pertussis IM 0.5 mL (NOW, per protocol). Start 06:07 11/12/2016 Sergio Maldonado R.N., Stop 07:10 11/12/2016 Shelia Vargas R.N. Medication Administered: IV NS (SALINE), Dose: IV Fluids over 1 hour(s), Rate: 1000 mL/hr, Dispensed: 1000 mL bag, Site: #1 left hand. Medication Ordered: IV NS : initial bolus 1000 mL (1000 mL/hr), then none - for X1 (NOW). Start 06:07 11/12/2016 Sergio Maldonado R.N. Medication Administered: CEFTRIAXONE [IVPB], Dose: 1 gm IVPB over 30 minute(s), Rate: 100 mL/hr, Dispensed: 50 mL bag, Site: #1 left hand. Medication Ordered: Ceftriaxone IV 1 gm/50mL (NOW). Start 06:26 11/12/2016 Sergio Maldonado R.N., Stop 07:32 11/12/2016 Shelia Vargas R.N. Medication Administered: VANCOMYCIN [IVPB], Dose: 1 gm IVPB over 1 hour(s), Rate: 200 mL/hr, Dispensed: 200 mL bag, Site: #1 left hand. Medication Ordered: Vancomycin IV 1 gm/200mL (NOW). Given 06:35 11/12/2016 Sergio Maldonado R.N. Medication Administered: NICOTINE [TOPICAL], Dose: 21 mg Patch/Pad Topical. Medication Ordered: Nicotine Topical 21 mg (NOW). Start 08:01 11/12/2016 Shelia Vargas R.N., Stop 09:02 11/12/2016 Shelia Vargas R.N. Medication Administered: IV NS (SALINE), Dose: IV Fluids over 1 hour(s), Rate: 1000 mL/hr, Dispensed: 1000 mL bag, Site: #1 left hand. Medication Ordered: IV NS : initial bolus 1000 mL (1000 mL/hr), then none - for X1 (NOW).
--- NOTE | 2016-11-12 09:36 | ED MAR SUMMARY ---
..... Medication Administration Record [facility] [address] [place] [address] Patient: ALEJANDRINA HENDRIX Visit ID: [id number] 36y, M Weight: 70.3 kg Height/Length: 69 in BMI: 22.9 ALLERGIES: No Known Drug Allergy Given 04:11 11/12/2016 Sergio Maldonado R.N. Medication Administered: MORPHINE [IVP], Dose: 4 mg IVP over 2 minute(s), Site: #1 left hand. Medication Ordered: Morphine IV 4 mg (HIGH ALERT MEDICATION, NOW). Given 04:15 11/12/2016 Sergio Maldonado R.N. Medication Administered: [id number]-[id number]-HNDZX PERTUSSIS [IM], Dose: 0.5 mL IM. Medication Ordered: Httymju-Gwbmka-Urvrb Pertussis IM 0.5 mL (NOW, per protocol). Start 06:07 11/12/2016 Sergio Maldonado R.N., Stop 07:10 11/12/2016 Shelia Vargas R.N. Medication Administered: IV NS (SALINE), Dose: IV Fluids over 1 hour(s), Rate: 1000 mL/hr, Dispensed: 1000 mL bag, Site: #1 left hand. Medication Ordered: IV NS : initial bolus 1000 mL (1000 mL/hr), then none - for X1 (NOW). Start 06:07 11/12/2016 Sergio Maldonado R.N. Medication Administered: CEFTRIAXONE [IVPB], Dose: 1 gm IVPB over 30 minute(s), Rate: 100 mL/hr, Dispensed: 50 mL bag, Site: #1 left hand. Medication Ordered: Ceftriaxone IV 1 gm/50mL (NOW). Start 06:26 11/12/2016 Sergio Maldonado R.N., Stop 07:32 11/12/2016 Shelia Vargas R.N. Medication Administered: VANCOMYCIN [IVPB], Dose: 1 gm IVPB over 1 hour(s), Rate: 200 mL/hr, Dispensed: 200 mL bag, Site: #1 left hand. Medication Ordered: Vancomycin IV 1 gm/200mL (NOW). Given 06:35 11/12/2016 Sergio Maldonado R.N. Medication Administered: NICOTINE [TOPICAL], Dose: 21 mg Patch/Pad Topical. Medication Ordered: Nicotine Topical 21 mg (NOW). Start 08:01 11/12/2016 Shelia Vargas R.N., Stop 09:02 11/12/2016 Shelia Vargas R.N. Medication Administered: IV NS (SALINE), Dose: IV Fluids over 1 hour(s), Rate: 1000 mL/hr, Dispensed: 1000 mL bag, Site: #1 left hand. Medication Ordered: IV NS : initial bolus 1000 mL (1000 mL/hr), then none - for X1 (NOW).
--- NOTE | 2016-11-12 09:36 | ED DISCHARGE INSTRUCTIONS ---
Patient: ALEJANDRINA HENDRIX General Instructions [facility] VisitID: [id number] [address] [place] [address] 36y, M Registration Date/Time: 11/12/2016 sepsis acute Cellulitis right hand, acute lymphangitis, acute right hand and forearm. (Electronically signed by Thomas Pascal Dr. 11/12/2016 8:04)
--- NOTE | 2016-11-12 10:00 | NUR ---
PATIENT ARRIVED TO FLOOR FROM ED AT 0920. PATIENT AMBULATED FROM STRETCHER TO BED WITH SBA. PATIENT TIRED DUE TO ARRIVING AT ED AT 0300. PHOTOS TAKEN OF BILATERAL HANDS. L MIDDLE KNUCKLE SLIGHTLY OPENED WITH SCANT SEROUS DRAINAGE. REDNESS AROUND OPEN AREA. R HAND WITH SWELLING AND REDNESS. MARKED WITH PEN. STATES PAIN 8/10. SEE ADMISSION DATA FOR FURTHER DETAILS.
--- NOTE | 2016-11-12 10:34 | NUR ---
Pt admits with cellulitis, pharmacy to dose vancomycin. Ht: 69in Wt: 70.3kg Scr: 0.8 Pt received 1gm vanco in ED at 0635 with ceftriaxone 1gm. Plan: Bolus with 1gm now for total bolus of 2gm, then begin 1500mg q8h with goal trough 10-20. Follow up with trough on 11/13.
[2016-11-12 14:13] VITALS: BP 110/76
[2016-11-12 18:15] VITALS: BP 105/67
--- NOTE | 2016-11-12 19:04 | NUR ---
PT IS A&OX3, BUT DROWSY MOST OF SHIFT. LS CTA, BT ACTIVE AND HR IS REG. RIGHT HAND IS RED AND HAS 2+ EDEMA THAT IS OUTLINED BY MARKER. LEFT HAND IS SLIGHTLY RED W/ A BAND-AID ON MIDDLE KNUCKLE. ANSWERS TO QUESTIONS APPOPRIATLEY BUT DROWSY. NO C/O NAUSEA. RESTING W. CALL LIGHT IN REACH.
[2016-11-12 21:34] VITALS: BP 126/75
[2016-11-12 22:20] VITALS: BP 138/74
--- NOTE | 2016-11-13 00:23 | NUR ---
PT. IS RESTING IN BED AT THIS TIME. DROWSY, ROUSES TO VOICE EASILY BUT FALLS BACK ASLEEP. ORIENTED, ABLE TO MAKE NEEDS KNOWN. ERYTHEMA NOTED SL. BEYOND MARGINS OF GARCIA ON HAND. CALL LIGHT WITHIN REACH.
[2016-11-13 02:48] VITALS: BP 108/70
[2016-11-13 06:41] VITALS: BP 115/75
--- NOTE | 2016-11-13 08:10 | NUR ---
PATIENT SITTING UP IN CHAIR FOR BREAKFAST. DENIES PAIN AT THIS TIME. SEE SHIFT ASSESSMENT FOR FURTHER DETAILS.
[2016-11-13 10:35] VITALS: BP 106/73
[2016-11-13 10:40] VITALS: BP 112/79
--- NOTE | 2016-11-13 10:53 | NUR ---
Vancomycin dosing per pharmacy trough level 14.3 in range Continue current dosing Vancomycin 1500 mg IVPB q8h. Will repeat trough level in 2 days if continues therapy.
--- NOTE | 2016-11-13 12:14 | Progress Note ---
Subjective General generally doing better. R hand and finger are less swollen. Constitutional Denies: Fever, Chills, Sweats. Eyes Denies: Vision Change. ENT Denies: Ear Pain, Nasal Discharge, Mouth Pain, Throat Pain. Respiratory Denies: Cough, SOB w/exertion, Wheezing, Pleuritic Pain. Cardiovascular Denies: Chest Pain, Palpitations, Edema. Gastrointestinal Denies: Nausea, Vomiting, Abdominal Pain, Diarrhea. Genitourinary Denies: Dysuria, Frequency, Incontinence, Hematuria. Musculoskeletal Denies: Hand Pain (R hand and middle finger impro). Skin Denies: Rash. Neurological Denies: Weakness, Numbness, Incoordination, Change in speech, Confusion. Physical Exam Vital Signs / I&Os Vital Signs Date Time Temp Pulse Resp B/P Pulse O2 O2 Flow FiO2 Ox Delivery Rate 11/13 1040 98.6 77 18 112/79 100 Room Air 11/13 0813 98 11/13 0641 97.0 78 19 115/75 98 Room Air 11/13 0248 98.8 66 16 108/70 98 Room Air 11/12 2220 98.4 72 18 138/74 96 Room Air 11/12 2134 98.4 74 20 126/75 95 Room Air 11/12 1856 Room Air 11/12 1815 97.9 86 16 105/67 98 Room Air 11/12 1413 98.6 77 20 110/76 99 Room Air I&O 11/12 0800 11/12 1600 11/13 0000 Intake Total 586 1253 Output Total 0 1775 Balance 586 -522 General Appearance Alert, Oriented X3, Cooperative HEENT Normal exam Lungs Clear to auscultation, Normal air movement Cardiovascular Regular rate and rhythm, Normal S1 and S2, No murmurs, gallops, rubs Abdomen Normal bowel sounds, Soft, No tenderness Extremities redness warmthe dorsum R middle finger with superficial abscess developing over PIP jt. Skin see above note. Neurological Normal exam Psych/Mental Status Mental status normal, Mood normal LAB Results Laboratory Tests 11/13 11/13 0612 0929 Hematology WBC (4.5 - 11.5 K/uL) 11.2 RBC (4.50 - 5.90 M/uL) 4.24 Hgb (13.5 - 17.5 gm/dL) 13.3 Hct (41.0 - 53.0 %) 39.7 MCV (80 - 100 fL) 93 MCH (26 - 34 pg) 31 RDW (11.6 - 14.8 %) 13.1 Neut % (Auto) (50 - 75 %) 73.9 Lymph % (Auto) (25 - 40 %) 16.7 [place] % (Auto) (3 - 14 %) 7.7 Eos % (Auto) (0 - 4 %) 1.3 Baso % (Auto) (0 - 2 %) 0.4 Plt Count, EDTA (150 - 400 K/uL) 264 PUBS MCHC (31 - 37 g/dL) 33 Toxicology Vancomycin Trough (10.0 - 20.0 ug/mL) 14.3 Assessment and Plan Problem List 1. Cellulitis of right hand Plan superficial blister R index finger overlying PIP jt. opened up and purulent thick fluid snet for G stain and culture. Pt. tolereated this without difficulty. No blood loss. 2. Ascending lymphangitis Plan Improving with Vancomycin. 3. Nicotine dependence Status Chronic Onset Date Unknown Plan Nicotine patch if needed. E&M Codes Rounding: Inpt-Moderate/17645
[2016-11-13 14:10] VITALS: BP 106/72
--- NOTE | 2016-11-13 15:27 | NUR ---
This RN gave patient 1 Percet today for pain in L hand. Patient states he has no pain. Patient has been somnolent t/o day. Patient did have 2 visitors during the day around 1200pm. This RN questioned patient if he has had any outside drug use and he said no he did not. This RN also did his admission and he stated he had no previous drug use. He stated he has been working a lot recently and is very overtired is why he has been sleeping a lot.
--- NOTE | 2016-11-13 16:54 | NUR ---
PT IS ALERT ONLY WHEN CALLING OUT NAME A COUPLE OF TIMES. STATES "NOT SLEEPING WELL RECENTLY AND IS CATCHING UP". ASKED PT IF RECENTLY USED DRUGS AND DENIES USE. DENIES PAIN IN HANDS, LOOKING FORWARD TO GOING HOME AFTER VANCO TONIGHT. ERYTHEMA AND SWELLING HAVE GREATLY DECREASED. NO NAUSEA OR ISSUE AT THIS TIME. WCTM.
--- NOTE | 2016-11-13 17:10 | NUR ---
IS HERE VISITING AND PT IS AGGITATED BUT STILL SLEEPY. ASKED IF OK TO SHARE INFO WITH HER AND PT STATES "ok".
[2016-11-13 19:01] VITALS: BP 112/71
--- NOTE | 2016-11-13 19:08 | NUR ---
PT'S (THEY ARE ) WAS IN AND OUT OF ROOM 3 TIMES, SEEMED ANXIOUS AND FIDDLING WITH ITEMS IN ROOM, PACING BACK AND FORTH. WHEN ENTERING ROOM BEGAN RUBBING PT'S LEG AND PT SEEMED VERY UNFOMFORTABLE (RED IN CHEEKS, WON'T LOOK IN EYES AND IS RUBBING BLANKET).THIS RN ASKED TO WAIT IN FOYER OR GARDEN AREA FOR MD TO PROVIDE CARE TO . SHE LEFT BUT WAS UPSET, THIS RN STATED THAT PT WAS VERY TIRED AND NEEDED TO REST, AND THAT MD WAS GOING TO BE IN ROOM SOON. PT HAS GIVEN OK TO SHARE INFO AND WILL CONTACT HER IF ANYTHING NEW COMES UP. IS NOW WAITING IN HALLWAY. WCTM.
[2016-11-13] MEDS ORDERED: NORCO1 TA1 PO (20:11)
[2016-11-13] MEDS ORDERED: SULFAMETHOXAZOL1 TAB PO (20:14)
--- NOTE | 2016-11-13 20:19 | Provider's Discharge Care Plan ---
Problem, Goal, Plan Problem List 1. Cellulitis of right hand Goals: Improve disease control, Improve function, Improved health/wellness, Increase independence Instructions: Follow up as directed, Take meds as directed, Stop smoking, fILL rX FOR ANTIBIOTIC AND TAKE 1 TAB TWICE DAILY X 7D. dRINK LOTS OF WATER WHEN TAKING THIS. Soak R hand as directed when taking this. Follow up with [facility] next to hospital in 3-5d. Return to ER if figer infection worsens. Take hydrocodone/ APAP 5/325 at bed time if needed for severe pain.
--- NOTE | 2016-11-13 20:52 | NUR ---
PATIENT WAS DISCHARGED FROM FLOOR AT 2044 AND WALKED TO ENTRY BY BRIAN CYLINDER DYER. IV WAS REMOVED WITHOUT ISSUE CATHETER INTACT. PROVIDED ALL PAPERWORK, ANSWERED ALL QUESTIONS AND PT SIGNED SIGNATURE PAGE. HANDS HAD NO ERYTHEMA OR PAIN AT TIME OF D/C. ROOM WAS CHECKED FOR PERSONAL ITEMS. WAS ASKED TO STAY OUT OF ROOM PRIOR TO D/C DUE TO ENTERING AND LEAVING REPEATEDLY. PACING AND CAUSING PT TO FEEL UNCOMFORTABLE. PT STATED APPRECIATION FOR GETTING "SPACE".
== END 2016-11-13 20:59 | disposition home or self-care (01) | DRG 383 ==
LOC: ED SRH 02:51 → TRANS SRH 07:58 → ACUTE2 SRH 09:30
PROVIDERS: ADMIT Internal Medicine
PROC: 3E0234Z Introduction of Serum, Toxoid and Vaccine into Muscle, Percutaneous Approach (ICD-10-PCS; 2016-11-12)
PROC: 0H9FXZX Drainage of Right Hand Skin, External Approach, Diagnostic (ICD-10-PCS; principal; 2016-11-13)
DX: L03.113 Cellulitis of right upper limb (principal); S60.511A Abrasion of right hand, initial encounter; W22.10XA Striking against or struck by unspecified automobile airbag, initial encounter; Y99.8 Other external cause status; L03.123 Acute lymphangitis of right upper limb; Z23 Encounter for immunization; F17.210 Nicotine dependence, cigarettes, uncomplicated; I10 Essential (primary) hypertension